=== PATIENT | female | born 1990 | race African-American/Black ===

== ENCOUNTER 2017-12-18 11:49 | Emergency (ER) | payer BC, SELFPAY ==
[2017-12-18] MEDS ORDERED: Acetaminophen 325 MG TAB ONE ×2 (13:29→13:32)
[2017-12-18] MEDS ORDERED: Naproxen 500 MG TAB ONE (13:30)
--- NOTE | 2017-12-18 14:03 | RAD ---
3 VIEWS LEFT KNEE: Date: 12/18/17 INDICATION: Left knee pain since earlier this week. FINDINGS: There is mild degenerative arthrosis of the left knee. There is a bipartite patella. There is mild mable int capsular distention. No acute osseous abnormality is evident. IMPRESSION: 1. Mild osteoarthrosis of the left knee is premature for the patient's age and may be related to isma or knee injury. There is mild joint capsular distention. 2. No acute fracture or subluxation. 3. Bipartite patella. POS: [facility]
== END 2017-12-18 14:00 | disposition home or self-care (01) ==
LOC: ERS 11:49
DX: M25.562 Pain in left knee (principal); E66.01 Morbid (severe) obesity due to excess calories; J45.909 Unspecified asthma, uncomplicated; X50.1XXA Overexertion from prolonged static or awkward postures, initial encounter

== ENCOUNTER 2018-01-18 15:08 | Emergency (ER) | payer BC ==
[2018-01-18] MEDS ORDERED: Ondansetron ODT 8 MG TAB ONE (15:41)
[2018-01-18 15:44] LABS: #Eosinphils 0.2 thou/uL (0.0-0.7); #Lymphocytes 3.1 thou/uL (1.20-3.40); #Monocytes 0.5 thou/uL (0.11-0.59); #Neutrophils 6.6 thou/uL (1.40-6.50); %Basophils 0.4 % (0.0-1.0); %Eosinophils 1.7 % (0.0-10.0); %Lymphocytes 30.1 % (21.0-51.0); %Monocytes 4.6 % (0.0-10.0); %Neutrophils 63.1 % (42.0-75.0); Hemoglobin 12.6 g/dL (12.0-16.0); Mean Corpuscular HGB CONC 33.1 g/dL (32.0-36.0); Mean Corpuscular Hemoglobin 28.7 pg (27.0-31.0); Mean Corpuscular Volume 86.6 fl (81.0-99.0); Mean Platelet Volume 8.2 fL (7.4-10.4); Platelet Count 296 thou/uL (130-400); RBC Distribution Width 12.2 % (11.5-14.5); Red Blood Cell (RBC) Count 4.38 mill/uL (4.20-5.40); White Blood Cell (WBC) Count 10.4 thou/uL (4.8-10.8)
[2018-01-18 16:00] LABS: BHCG - Serum Negative (NEGATIVE); Pregs Control Background? CLEAR/WHITE (CLR/WHITE); Pregs Control Bar Appear? YES (CONTROL BAR)
[2018-01-18 16:04] LABS: ALT (SGPT) 12 U/L (8-55); AST (SGOT) 13 U/L (5-34); Albumin 3.9 g/dL (3.5-5.0); Alkaline Phosphatase 71 U/L (40-150); Anion Gap 11 mmol/L (10-20); BUN (Urea Nitrogen) 13 mg/dL (7.0-18.7); Bilirubin, Total 0.2 mg/dL (0.2-1.2); CK (CPK) 124 U/L (29-168); Calc. Creatinine Clearance 0 mL/min (70-130); Calcium 8.9 mg/dL (7.8-10.44); Carbon Dioxide 24 mmol/L (22-29); Chloride 106 mmol/L (98-107); Estimated GFR-MDRD Greater than 90; Globulin 2.8 g/dL (2.4-3.5); Glucose 113 mg/dL (70-105); Lipase 17 U/L (8-78); Potassium 3.7 mmol/L (3.5-5.1); Protein, Total 6.7 g/dL (6.0-8.3); Sodium 137 mmol/L (136-145)
== END 2018-01-18 17:09 | disposition home or self-care (01) ==
LOC: ERS 15:08
DX: E86.0 Dehydration (principal); J45.909 Unspecified asthma, uncomplicated
CPT/HCPCS: 80053; 82550; 83690; 84703; 85025; 93005; 96360

== ENCOUNTER 2018-01-25 14:52 | Emergency (ER) | payer BC ==
[2018-01-25] MEDS ORDERED: Acetaminophen 500 MG TAB ONE (16:41)
[2018-01-25] MEDS ORDERED: Adacel (T-DAP) 0.5 ML VIAL ONE (18:34)
[2018-01-25] MEDS ORDERED: Lidocaine 1% (PF) 30 ML VIAL ONE (18:34)
[2018-01-25] MEDS ORDERED: Bacitracin Zinc 1 Packet ONE (18:42)
--- NOTE | 2018-01-25 18:53 | RAD ---
RIGHT THUMB THREE VIEWS: HISTORY: Injury to thumb with pain. FINDINGS: No fracture, dislocation, or other osseous abnormality identified. IMPRESSION: No osseous abnormality identified. POS: [facility]
== END 2018-01-25 18:31 | disposition home or self-care (01) ==
LOC: ERS 14:52
DX: S61.011A Laceration without foreign body of right thumb without damage to nail, initial encounter (principal); J45.909 Unspecified asthma, uncomplicated; W26.0XXA Contact with knife, initial encounter
CPT/HCPCS: 90471; 90715; J2001

== ENCOUNTER 2018-07-24 14:13 | Emergency (ER) | payer BC ==
[2018-07-24] MEDS ORDERED: Triamcinolone 40 MG/ML VIAL IM SCH (15:15)
[2018-07-24] MEDS ORDERED: Orphenadrine Citrate 60 MG/2 ML VIAL IM SCH (15:15)
--- NOTE | 2018-07-24 15:27 | RAD ---
TWO VIEWS LEFT HIP: DATE: 07/24/2018. PROVIDED CLINICAL HISTORY: Left hip pain. FINDINGS: Evaluation is limited by patient body habitus and portable technique. No definite evidence for displ aced fracture or dislocation. If there is persistent clinical concern, conservative management and f ollowup imaging are advised. IMPRESSION: As above. POS: [facility]
--- NOTE | 2018-07-24 15:28 | RAD ---
TWO VIEWS RIGHT HIP: DATE: 07/24/2018. PROVIDED CLINICAL HISTORY: Right hip pain. FINDINGS: Evaluation is limited by patient body habitus and portable technique. There is no evidence for displ aced fracture. Alignment appears grossly anatomic. If there is persistent clinical concern, conserv ative management and followup imaging are advised. IMPRESSION: As above. POS: [facility]
[2018-07-24 15:40] LABS: Bilirubin Negative (Negative); Blood, Urine Negative (Negative); Clarity CLEAR (Clear); Glucose, Urine (Dipstick) Negative (Negative); Leukocyte Trace (Negative); Nitrite Negative (Negative); Protein, Urine (Dipstick) Negative (Neg-Trace); Specific Gravity, Urine 1.017 (1.002-1.036); Urobilinogen 0.2 mg/dL (0.2-1.0); pH, Urine 5.5 (5.0-9.0)
[2018-07-24 15:41] LABS: Pregnancy Test - Urine (BHCG) Negative (Negative); Pregu Control Background? CLEAR/WHITE (CLR/WHITE); Pregu Control Bar Appear? YES (CONTROL BAR); Specific Gravity 1.017 (1.002-1.036)
[2018-07-24 15:42] LABS: Bacteria/HPF None Seen HPF (None Seen); Hyaline Casts/LPF 0-3 HYALINE CAST LPF (0-3 Hyaline); Pathc Cast-AUWi Flag 0.29 (0-2.49); RBC/HPF 0-3 HPF (0-3); Squamous Epithelial 0-3 HPF (0-3); WBC/HPF 0-3 HPF (0-3)
[2018-07-24] MEDS ORDERED: Ketorolac Tromethamine 30 MG/ML VIAL ONE (16:00)
== END 2018-07-24 17:20 | disposition home or self-care (01) ==
LOC: ERS 14:13
DX: M46.1 Sacroiliitis, not elsewhere classified (principal); G57.03 Lesion of sciatic nerve, bilateral lower limbs; J45.909 Unspecified asthma, uncomplicated; E11.9 Type 2 diabetes mellitus without complications; Z79.899 Other long term (current) drug therapy
CPT/HCPCS: 81003; 81015; 81025; 96372; J1885; J2360; J3301

== ENCOUNTER 2018-11-11 10:11 | Emergency (ER) | payer BC ==
[2018-11-11] MEDS ORDERED: predniSONE 20 MG TAB ONE (10:48)
[2018-11-11] MEDS ORDERED: diphenhydrAMINE 25 MG CAP ONE (10:48)
== END 2018-11-11 11:03 | disposition home or self-care (01) ==
LOC: ERS 10:11
DX: T78.40XA Allergy, unspecified, initial encounter (principal); J45.909 Unspecified asthma, uncomplicated; E11.9 Type 2 diabetes mellitus without complications
CPT/HCPCS: 99283; Q0163

== ENCOUNTER 2019-08-19 12:11 | Emergency (ER) | payer BC ==
[2019-08-19] MEDS ORDERED: Ondansetron PF 4 MG/2 ML Vial ONE (13:27)
[2019-08-19] MEDS ORDERED: Morphine 4 MG/ML VIAL ONE (13:27)
[2019-08-19 14:04] LABS: #Eosinphils 0.2 thou/uL (0.0-0.7); #Lymphocytes 3.5 thou/uL (1.20-3.40); #Monocytes 0.8 thou/uL (0.11-0.59); %Basophils 0.4 % (0.0-1.0); %Eosinophils 1.6 % (0.0-10.0); %Lymphocytes 29.9 % (21.0-51.0); %Monocytes 7.1 % (0.0-10.0); Hemoglobin 12.3 g/dL (12.0-16.0); Mean Corpuscular HGB CONC 32.9 g/dL (32.0-36.0); Mean Corpuscular Hemoglobin 28.6 pg (27.0-31.0); Mean Platelet Volume 8.7 fL (7.4-10.4); Platelet Count 298 thou/uL (130-400); RBC Distribution Width 12.4 % (11.5-14.5); Red Blood Cell (RBC) Count 4.31 mill/uL (4.20-5.40); White Blood Cell (WBC) Count 11.5 thou/uL (4.8-10.8)
--- NOTE | 2019-08-19 14:15 | RAD ---
XR Chest 1 View Portable HISTORY: Chest pain COMPARISON: 01/22/2014 FINDINGS: The heart size is normal. The lungs are well expanded without focal areas of consolidation, pneumothorax or pleural effusions. IMPRESSION: No radiographic evidence of acute cardiopulmonary process.
[2019-08-19 14:25] LABS: Bilirubin Negative (Negative); Blood, Urine Negative (Negative); Clarity Clear (Clear); Glucose, Urine (Dipstick) Normal (Negative); Leukocyte Negative Leu/uL (Negative); Nitrite Negative (Negative); Protein, Urine (Dipstick) Negative (Neg-Trace); Urobilinogen Normal mg/dL (Less than 2)
[2019-08-19 14:26] LABS: ALT (SGPT) 13 U/L (8-55); AST (SGOT) 14 U/L (5-34); Albumin 4.4 g/dL (3.5-5.0); Alkaline Phosphatase 73 U/L (40-110); Anion Gap 8 mmol/L (10-20); BUN (Urea Nitrogen) 10 mg/dL (7.0-18.7); Bilirubin, Total 0.3 mg/dL (0.2-1.2); Calc. Creatinine Clearance 0 mL/min (70-130); Carbon Dioxide 30 mmol/L (22-29); Chloride 103 mmol/L (98-107); Estimated GFR-MDRD Greater than 90; Globulin 3.2 g/dL (2.4-3.5); Glucose 94 mg/dL (70-105); Potassium 3.4 mmol/L (3.5-5.1); Protein, Total 7.6 g/dL (6.0-8.3); Sodium 138 mmol/L (136-145)
== END 2019-08-19 15:03 | disposition home or self-care (01) ==
LOC: ERS 12:11
DX: R07.9 Chest pain, unspecified (principal); R05 Cough; E11.9 Type 2 diabetes mellitus without complications; J45.909 Unspecified asthma, uncomplicated; I10 Essential (primary) hypertension; Z79.899 Other long term (current) drug therapy
CPT/HCPCS: 71045; 80053; 81003; 84484; 85025; 93005; 96374; 96375; J2270; J2405

== ENCOUNTER 2021-12-16 12:25 | Outpatient (CLI) | payer BC | END 2021-12-16 12:26 | disposition home or self-care (01) | LOC: BICRAD 12:25 | PROVIDERS: ATTEND Nurse Practitioner Family | DX: M25.561 Pain in right knee (principal) ==

== ENCOUNTER 2022-03-14 10:34 | Outpatient (CLI) | payer BC ==
[2022-03-14 11:12] LABS: #Basophils 0.1 10x3/uL (0.0-0.2); #Eosinphils 0.2 10x3/uL (0.0-0.5); #Monocytes 0.7 10x3/uL (0.0-1.1); #Neutrophils 7.1 10x3/uL (1.5-8.4); %Basophils 0.6 % (0.0-2.0); %Lymphocytes 31.6 % (18.0-47.0); %Monocytes 5.5 % (0.0-10.0); Mean Corpuscular HGB CONC 31.6 g/dL (32.0-36.0); Mean Corpuscular Hemoglobin 26.8 pg (27.0-33.0); Mean Corpuscular Volume 84.7 fl (81.6-98.3); Mean Platelet Volume 10.5 fl (7.4-10.4); Platelet Count 360 10x3/uL (150-450); RBC Distribution Width 13.7 % (11.5-14.5); Red Blood Cell (RBC) Count 4.11 10x6/uL (3.90-5.03); White Blood Cell (WBC) Count 11.8 10x3/uL (3.5-10.5)
[2022-03-14 11:28] LABS: BHCG - Serum Negative (NEGATIVE); Pregs Control Background? CLEAR/WHITE (CLR/WHITE); Pregs Control Bar Appear? YES (CONTROL BAR)
== END 2022-03-14 10:35 | disposition home or self-care (01) ==
LOC: LABBT 10:34
PROVIDERS: ATTEND Orthopaedic Surgery
DX: Z01.818 Encounter for other preprocedural examination (principal); S83.251A Bucket-handle tear of lateral meniscus, current injury, right knee, initial encounter; Z20.822 Contact with and (suspected) exposure to COVID-19
CPT/HCPCS: 84703; 85025; 87811; 93005; 93010

== ENCOUNTER 2022-03-19 05:58 | Day surgery (SDC) | payer BC ==
[2022-03-17 12:26] VITALS: BMI 53.6
[2022-03-19] MEDS ORDERED: Fentanyl 100 MCG/2 ML VIAL ONE ×2 (06:21→08:43)
[2022-03-19] MEDS ORDERED: PROPOFOL 20 ML ONE (06:40)
[2022-03-19] MEDS ORDERED: Sodium Chloride 0.9% 100 ML ONE (06:47)
[2022-03-19] MEDS ORDERED: CEFAZOLIN 2 GM VIAL ONE (06:47)
[2022-03-19] MEDS ORDERED: PROPOFOL 200 MG/20 ML VIAL ONE (07:16)
[2022-03-19] MEDS ORDERED: Lidocaine 2% w/Epinephrine 1:200K 20 ML VIAL ONE (07:16)
[2022-03-19] MEDS ORDERED: Dexamethasone 20 MG/5 ML VIAL ONE (07:16)
[2022-03-19] MEDS ORDERED: Bupivacaine HCl 0.5%/Epinephrine 1:200,000/PF 30 ml Vial ONE (07:16)
[2022-03-19] MEDS ORDERED: Ondansetron PF 4 MG/2 ML Vial ONE (07:16)
[2022-03-19] MEDS ORDERED: Lidocaine 1% PF 5 ML VIAL ONE (07:16)
[2022-03-19] MEDS ORDERED: Lidocaine 1% (PF) 30 ML VIAL ONE (07:48)
[2022-03-19] MEDS ORDERED: Promethazine HCl 25 MG/ML VIAL ONE (08:15)
== END 2022-03-19 10:15 | disposition home or self-care (01) ==
LOC: SDC 05:58
PROVIDERS: ATTEND Orthopaedic Surgery
PROC: 0SBC4ZZ Excision of Right Knee Joint, Percutaneous Endoscopic Approach (ICD-10-PCS; principal; 2022-03-19)
DX: S83.271A Complex tear of lateral meniscus, current injury, right knee, initial encounter (principal); M23.8X1 Other internal derangements of right knee; S76.111A Strain of right quadriceps muscle, fascia and tendon, initial encounter; J45.909 Unspecified asthma, uncomplicated; I10 Essential (primary) hypertension; E66.01 Morbid (severe) obesity due to excess calories; Z68.43 Body mass index [BMI] 50.0-59.9, adult; Z79.899 Other long term (current) drug therapy; W17.89XA Other fall from one level to another, initial encounter
CPT/HCPCS: J0690; J1100; J2001; J2405; J2550; J2704; J3010; J3490

== ENCOUNTER 2022-12-13 21:34 | Emergency (ER) | payer BC, SELFPAY ==
[2022-12-13] MEDS ORDERED: Morphine 4 MG/ML VIAL ONE (21:51)
[2022-12-13] MEDS ORDERED: Ondansetron PF 4 MG/2 ML Vial ONE (21:51)
[2022-12-13 22:14] LABS: Bilirubin Negative (Negative); Blood, Urine 3+ (Negative); Clarity Clear (Clear); Glucose, Urine (Dipstick) Normal (Negative); Ketone, Urine Negative (Negative); Leukocyte 250 Leu/uL (Negative); Nitrite Negative (Negative); Protein, Urine (Dipstick) Negative (Neg-Trace); Squamous Epithelial 0-3 HPF (0-3); Urobilinogen Normal mg/dL (Less than 2)
[2022-12-13 22:15] LABS: Bacteria/HPF 1+ HPF (None Seen); Pregnancy Test - Urine (BHCG) Negative (Negative); Pregu Control Background? CLEAR/WHITE (CLR/WHITE); Pregu Control Bar Appear? YES (CONTROL BAR)
[2022-12-13 22:33] LABS: #Eosinphils 0.1 thou/uL (0.0-0.7); #Lymphocytes 1.4 thou/uL (1.20-3.40); #Monocytes 0.3 thou/uL (0.11-0.59); #Neutrophils 7.5 thou/uL (1.40-6.50); %Basophils 0.5 % (0.0-1.0); %Eosinophils 1.4 % (0.0-10.0); %Lymphocytes 15.2 % (21.0-51.0); %Monocytes 3.6 % (0.0-10.0); %Neutrophils 79.3 % (42.0-75.0); Hemoglobin 12.9 g/dL (12.0-16.0); Mean Corpuscular HGB CONC 33.5 g/dL (32.0-36.0); Mean Corpuscular Hemoglobin 28.5 pg (27.0-31.0); Mean Platelet Volume 8.4 fL (7.4-10.4); Platelet Count 322 10x3/uL (130-400); RBC Distribution Width 13.7 % (11.5-14.5); Red Blood Cell (RBC) Count 4.54 mill/uL (4.20-5.40); White Blood Cell (WBC) Count 9.4 10x3/uL (4.8-10.8)
[2022-12-13 22:56] LABS: ALT (SGPT) 11 U/L (8-55); AST (SGOT) 14 U/L (5-34); Albumin 4.3 g/dL (3.5-5.0); Alkaline Phosphatase 68 U/L (40-110); Anion Gap 15 mmol/L (10-20); BUN (Urea Nitrogen) 14 mg/dL (7.0-18.7); Bilirubin, Direct 0.1 mg/dL (0.1-0.3); Bilirubin, Total 0.3 mg/dL (0.2-1.2); Calc. Creatinine Clearance 0 mL/min (70-130); Carbon Dioxide 24 mmol/L (22-29); Chloride 103 mmol/L (98-107); Estimated GFR 95; Glucose 105 mg/dL (70-105); Lipase 19 U/L (8-78); Potassium 3.9 mmol/L (3.5-5.1); Protein, Total 7.5 g/dL (6.0-8.3); Sodium 138 mmol/L (136-145)
[2022-12-13] MEDS ORDERED: Dicyclomine 20 MG TAB ONE (23:27)
[2022-12-13] MEDS ORDERED: Ketorolac Tromethamine 30 MG/ML VIAL ONE (23:27)
== END 2022-12-13 23:38 | disposition home or self-care (01) ==
LOC: ERS 21:34
DX: N39.0 Urinary tract infection, site not specified (principal); E11.9 Type 2 diabetes mellitus without complications; I10 Essential (primary) hypertension; Z79.899 Other long term (current) drug therapy
CPT/HCPCS: 76705; 80048; 80076; 81003; 81015; 81025; 83690; 85025; 96374; 96375; J1885; J2270; J2405

== ENCOUNTER 2023-03-25 11:56 | Emergency (ER) | payer OTHER ==
[2023-03-25] MEDS ORDERED: Ketorolac Tromethamine 30 MG/ML VIAL ONE (12:50)
== END 2023-03-25 13:00 | disposition home or self-care (01) ==
LOC: ERS 11:56
DX: K04.7 Periapical abscess without sinus (principal); E11.9 Type 2 diabetes mellitus without complications; I10 Essential (primary) hypertension; Z79.899 Other long term (current) drug therapy
CPT/HCPCS: 99283; J1885

== ENCOUNTER 2023-06-09 06:30 | Emergency (ER) | payer OTHER ==
[2023-06-09 07:29] LABS: #Basophils 0.1 thou/uL (0.0-0.2); #Eosinphils 0.2 thou/uL (0.0-0.7); #Monocytes 0.6 thou/uL (0.11-0.59); #Neutrophils 6.2 thou/uL (1.40-6.50); %Basophils 0.6 % (0.0-1.0); %Eosinophils 2.5 % (0.0-10.0); %Lymphocytes 25.5 % (21.0-51.0); %Monocytes 5.9 % (0.0-10.0); Hematocrit 36.6 % (36.0-47.0); Hemoglobin 11.5 g/dL (12.0-16.0); Mean Corpuscular HGB CONC 31.4 g/dL (32.0-36.0); Mean Corpuscular Hemoglobin 27.1 pg (27.0-31.0); Mean Corpuscular Volume 86.3 fl (78.0-98.0); Mean Platelet Volume 10.2 fL (7.4-10.4); Platelet Count 382 10x3/uL (130-400); RBC Distribution Width 13.1 % (11.5-14.5); Red Blood Cell (RBC) Count 4.24 mill/uL (4.20-5.40); White Blood Cell (WBC) Count 9.5 10x3/uL (4.8-10.8)
[2023-06-09] MEDS ORDERED: Ondansetron PF 4 MG/2 ML Vial ONE (07:37)
[2023-06-09] MEDS ORDERED: Ketorolac Tromethamine 30 MG/ML VIAL ONE ×2 (07:37→10:44)
[2023-06-09 07:40] LABS: BHCG - Serum Negative (NEGATIVE); Pregs Control Background? CLEAR/WHITE (CLR/WHITE); Pregs Control Bar Appear? YES (CONTROL BAR)
[2023-06-09] MEDS ORDERED: Dicyclomine 20 MG/2 ML VIAL ONE (07:41)
[2023-06-09 07:53] LABS: ALT (SGPT) 20 U/L (8-55); AST (SGOT) 16 U/L (5-34); Albumin 4.4 g/dL (3.5-5.0); Alkaline Phosphatase 70 U/L (40-110); Anion Gap 11 mmol/L (10-20); BUN (Urea Nitrogen) 10 mg/dL (7.0-18.7); Bilirubin, Total 0.2 mg/dL (0.2-1.2); Calc. Creatinine Clearance 0 mL/min (70-130); Calcium 8.9 mg/dL (7.8-10.44); Carbon Dioxide 26 mmol/L (22-29); Chloride 104 mmol/L (98-107); Estimated GFR 115; Globulin 2.6 g/dL (2.4-3.5); Glucose 106 mg/dL (70-105); Lipase 8 U/L (8-78); Potassium 3.8 mmol/L (3.5-5.1); Sodium 137 mmol/L (136-145)
== END 2023-06-09 11:05 | disposition home or self-care (01) ==
LOC: ERS 06:30
DX: K59.00 Constipation, unspecified (principal); E11.9 Type 2 diabetes mellitus without complications; I10 Essential (primary) hypertension; J45.909 Unspecified asthma, uncomplicated; Z79.51 Long term (current) use of inhaled steroids
CPT/HCPCS: 36415; 80053; 83690; 84703; 85025; 96372; 96374; 96375; J1885; J2405

== ENCOUNTER 2024-02-08 06:24 | Emergency (ER) | payer BC, OTHER ==
[2024-02-08] MEDS ORDERED: diphenhydrAMINE 25 MG CAP ONE (07:03)
[2024-02-08] MEDS ORDERED: predniSONE 20 MG TAB ONE (07:03)
== END 2024-02-08 08:17 | disposition home or self-care (01) ==
LOC: ERS 06:24
DX: T63.2X1A Toxic effect of venom of scorpion, accidental (unintentional), initial encounter (principal); E11.9 Type 2 diabetes mellitus without complications; I10 Essential (primary) hypertension; Z55.6 Problems related to health literacy; J45.909 Unspecified asthma, uncomplicated; Z79.51 Long term (current) use of inhaled steroids
CPT/HCPCS: 99282; J7512